=== PATIENT | male | born 1930 | race American Indian/Alaskan Native ===

== ENCOUNTER 2017-04-25 09:41 | Day surgery (SDC) | payer MEDICARE ==
[2017-04-25 10:09] VITALS: BMI 30.1
[2017-04-25] MEDS ORDERED: Propofol 10 mg/ml Inj (20 ML) ONE (10:35)
[2017-04-25] MEDS ORDERED: Succinylcholine Chloride 20 mg/ml Syr (5 ml) IV ONE (10:36)
[2017-04-25] MEDS ORDERED: Lactated Ringer's 1,000 ML IV ONE (10:40)
[2017-04-25] MEDS ORDERED: Phenylephrine 10 mg/ml Inj ONE (11:10)
[2017-04-25] MEDS ORDERED: Lactated Ringer's 500 ML IV SCH (11:45)
[2017-04-25 13:22] VITALS: BP 135/79; PULSE 82; RESP 15; TEMP 98; O2SAT 99
== END 2017-04-25 14:10 | disposition home or self-care (01) ==
LOC: C.ENDO 09:41
PROVIDERS: ATTEND Internal Medicine
DX: C25.7 Malignant neoplasm of other parts of pancreas (principal); R18.8 Other ascites
CPT/HCPCS: 43237; 82948; 88307; J2370; J2704; J7120